=== PATIENT | female | born 1985 | race Caucasian/White ===

== ENCOUNTER 2021-06-02 11:50 | Emergency (ER) | payer OTHER ==
[2021-06-02] MEDS ORDERED: Ondansetron 4 MG/2 ML SDV IVPUSH ONE ×2 (11:51→13:09)
[2021-06-02] MEDS ORDERED: Sodium Chloride 0.9% 1,000 ML IV ONE ×2 (11:51→13:09)
--- NOTE | 2021-06-02 12:04 | EDM.PDOC ---
ED HPI GENERAL MEDICAL PROBLEM - General Stated Complaint: COVID SYMPTOMS Time Seen by Provider: 06/02/21 11:51 Source of Information: Reports: Patient History Limitations: Reports: No Limitations - History of Present Illness INITIAL COMMENTS - FREE TEXT/NARRATIVE: Patient presents with body aches, fatigue, decreased energy, vomiting, diarrhea, headache. She had positive Covid test 4 days ago and symptoms began 8 days ago with the fever and aches. The rest have been in the last 3-4 days. She feels tired and weak with the loss of fluids. Can't keep anything down now. A little cough but no dyspnea. - Related Data Allergies Allergy/AdvReac Type Severity Reaction Status Date / Time No Known Allergies Allergy Verified 06/02/21 12:20 Home Meds: Home Meds L.acidoph,Paracasei, B.lactis [Probiotic] 1 each PO DAILY 06/02/21 [History] ED ROS GENERAL - Review of Systems Review Of Systems: Comprehensive ROS is negative, except as noted in HPI. : Denies: Dysuria, Flank Pain ED EXAM, GENERAL - Physical Exam Exam: See Below Exam Limited By: No Limitations General Appearance: Alert, WD/WN, No Apparent Distress Eye Exam: Bilateral Eye: EOMI, Normal Inspection, PERRL Ears: Normal External Exam, Hearing Grossly Normal Nose: Normal Inspection, No Blood Throat/Mouth: Normal Inspection, Normal Lips, Normal Voice, No Airway Compromise Head: Atraumatic, Normocephalic Neck: Normal Inspection, Full Range of Motion Respiratory/Chest: No Respiratory Distress, Lungs Clear, Normal Breath Sounds, No Accessory Muscle Use. No: Crackles, Rales, Rhonchi, Wheezing, Stridor Cardiovascular: No Murmur, Tachycardia (mild, regular) GI/Abdominal: Normal Bowel Sounds, Soft, Non-Tender, No Organomegaly, No Distention, No Abnormal Bruit, No Mass Back Exam: Normal Inspection, Full Range of Motion. No: CVA Tenderness (L), CVA Tenderness (R) Extremities: Normal Inspection, Normal Range of Motion Neurological: Alert, Oriented, Normal Cognition, No Motor/Sensory Deficits Psychiatric: Normal Affect, Normal Mood Skin Exam: Warm, Dry, Intact, Normal Color, No Rash Course - Vital Signs Last Recorded V/S: Last Vital Signs Temp 98.6 F 06/02/21 11:50 Pulse 88 06/02/21 12:26 Resp 14 06/02/21 12:15 BP 127/84 06/02/21 12:26 Pulse Ox 97 06/02/21 12:26 - Orders/Labs/Meds Labs: Laboratory Tests 06/02/21 06/02/21 Range/Units 12:30 12:30 WBC 4.73 L (5.00-10.00) 10^3/uL RBC 4.95 (3.80-5.50) 10^6/uL Hgb 13.8 (12.0-16.0) g/dL Hct 42.5 (37.0-47.0) % MCV 85.9 (82.0-92.0) fL MCH 27.9 (27.0-31.0) pg MCHC 32.5 (32.0-36.0) g/dL RDW 12.4 (11.5-14.5) % Plt Count 149 L (150-400) 10^3/uL MPV 10.8 H (7.4-10.4) fL Immature Gran % (Auto) 0.0 (0.0-5.0) % Neut % (Auto) 67.7 (50.0-70.0) % Lymph % (Auto) 26.4 (20.0-40.0) % [place] % (Auto) 5.7 (2.0-8.0) % Eos % (Auto) 0.0 L (1.0-3.0) % Baso % (Auto) 0.2 (0.0-1.0) % Neut # (Auto) 3.20 (2.50-7.00) 10^3/uL Lymph # (Auto) 1.25 (1.00-4.00) 10^3/uL [place] # (Auto) 0.27 (0.10-0.80) 10^3/uL Eos # (Auto) 0.00 L (0.10-0.30) 10^3/uL Baso # (Auto) 0.01 (0.00-0.10) 10^3/uL Immature Gran # (Auto) 0.00 (0.00-0.50) 10^3/uL Sodium 138 (136-145) mmol/L Potassium 4.2 (3.5-5.1) mmol/L Chloride 101 (98-107) mmol/L Carbon Dioxide 24.0 (21.0-32.0) mmol/L Anion Gap 17.2 H (5-15) mmol/L BUN 12 (7-18) mg/dL Creatinine 0.52 (0.51-1.17) mg/dL Est Cr Clr Drug Dosing 108.46 mL/min Estimated GFR (MDRD) > 60 mL/min Glucose 82 (70-140) mg/dL Calcium 8.2 L (8.7-10.3) mg/dL Meds: Medications Discontinued Medications Generic Name Dose Route Start Last Admin Trade Name Freq PRN Reason Stop Dose Admin Sodium Chloride 1,000 mls @ 999 mls/hr 06/02/21 11:51 06/02/21 12:10 Normal Saline IV 06/02/21 12:51 999 mls/hr .BOLUS ONE Administration Sodium Chloride 1,000 mls @ 999 mls/hr 06/02/21 13:09 06/02/21 13:10 Normal Saline IV 06/02/21 14:09 999 mls/hr .BOLUS ONE Administration Ondansetron HCl 4 mg 06/02/21 11:51 06/02/21 12:10 Ondansetron 4 Mg/2 Ml Sdv IVPUSH 06/02/21 11:52 4 mg ONETIME ONE Administration Ondansetron HCl 4 mg 06/02/21 13:09 06/02/21 13:10 Ondansetron 4 Mg/2 Ml Sdv IVPUSH 06/02/21 13:10 4 mg ONETIME ONE Administration - Re-Assessments/Exams Free Text/Narrative Re-Assessment/Exam: 06/02/21 12:14 Her is also covid positive and had the antibody infusion. She was told by her PCP that she probably wouldn't be a candidate unless she worsened. She will call and see if PCP will order now. We will give IV fluids and zofran now. Rx for Zofran 4 mg ODT #20, 1 po tid prn n/v given. 06/02/21 13:10 First liter of saline and dose of Zofran are in. Patient still having some nausea and feeling weak. Would like more fluids. Will give another liter and dose of Zofran and then try some po water or food. 06/02/21 18:17 Patient stable at discharge following second liter of saline. Departure - Departure Time of Disposition: 18:18 Disposition: Home, Self-Care 01 Condition: Good Clinical Impression: COVID-19, Dehydration, Nausea vomiting and diarrhea, General weakness - Discharge Information Instructions: COVID-19 Frequently Asked Questions, 10 Things You Can Do to Manage Your COVID-19 Symptoms at Home - [facility] (02/20/2021), Diarrhea, Adult, [id number] Referrals: PCP,None [Family Provider] - Forms: ED Department Discharge Additional Instructions: Try to drink 8 cups of water daily. Use the Zofran as directed to control nausea so that you can eat and drink as needed. Call your PCP for more info on treatment options. If worsening, recheck in clinic or ER as needed. Sepsis Event Note (ED) - Focused Exam Vital Signs: Vital Signs Temp Pulse Resp BP Pulse Ox 06/02/21 12:26 88 127/84 97 06/02/21 12:15 90 14 127/84 99 06/02/21 12:00 109 H 127/85 06/02/21 11:50 98.6 F 108 H 14 125/86 99
[2021-06-02 12:53] LABS: ANION GAP 17.2 mmol/L (5-15); CHLORIDE,CL 101 mmol/L (98-107); SODIUM,NA 138 mmol/L (136-145)
== END 2021-06-02 14:30 | disposition home or self-care (01) ==
LOC: KA.ED 11:50
DX: U07.1 COVID-19 (principal); E86.0 Dehydration; R53.1 Weakness; R11.2 Nausea with vomiting, unspecified; R19.7 Diarrhea, unspecified
CPT/HCPCS: 36415; 80048; 85025; 96374; 96376; 99283; 99284-25; J2405; J7030